=== PATIENT | male | born 1980 | race Caucasian/White ===

== ENCOUNTER 2020-06-22 19:13 | Emergency (ER) | payer OTHER ==
[2020-06-22 19:29] VITALS: BP 143/94; PULSE 94; RESP 18; TEMP 98
[2020-06-22 20:52] LABS: Amphetamine Screen,Urine Not Detected (NotDetected); Barbiturate Screen,Urine Not Detected (NotDetected); Benzodiazepines Screen,Urine Not Detected (NotDetected); Cocaine Screen,Urine Not Detected (NotDetected); Methadone Screen, Urine Not Detected (NotDetected); Opiate Screen,Urine Not Detected (NotDetected); Oxycodone Screen, Urine Not Detected (NotDetected); Phencyclidine Screen,Urine Not Detected (NotDetected); Tricyclic Antidepressant,Urine Not Detected (NotDetected); Urn Cannabinoid Scrn Detected (NotDetected)
--- NOTE | 2020-06-22 21:24 | ED ---
Psych HPI - General Chief Complaint: Psychiatric Symptoms Stated Complaint: Mental Health Time Seen by Provider: 06/22/20 20:07 Source: patient, police, RN notes reviewed Mode of arrival: ambulatory - History of Present Illness Initial Comments: This is a 39-year-old male brought in by [facility] for evaluation for depression and suicidal ideation. The [place] apparently was [place] did threaten to shoot himself. He denies this to myself at this time. Apparently a friend has recently committed suicide also his girlfriend is currently in long term. No other complaints or modifying factors this time patient is under petition. MD Complaint: suicidal ideation, feels depressed - Related Data Home Medications Medication Instructions Recorded Confirmed No Known Home Medications 05/14/14 05/14/14 Allergies Allergy/AdvReac Type Severity Reaction Status Date / Time No Known Allergies Allergy Verified 06/22/20 19:29 Review of Systems ROS Statement: Those systems with pertinent positive or pertinent negative responses have been documented in the HPI. ROS Other: All systems not noted in ROS Statement are negative. Past Medical History Past Medical History: No Reported History History of Any Multi-Drug Resistant Organisms: None Reported Past Surgical History: No Surgical Hx Reported Past Psychological History: No Psychological Hx Reported Smoking Status: Current every day smoker Past Alcohol Use History: Occasional Past Drug Use History: None Reported General Exam - General Exam Comments Initial Comments: this a well-developed well-nourished awake alert oriented 3 male Limitations: no limitations General appearance: alert, in no apparent distress Head exam: Present: atraumatic, normocephalic, normal inspection Eye exam: Present: normal appearance, PERRL, EOMI. Absent: scleral icterus, co njunctival injection, periorbital swelling ENT exam: Present: normal exam, mucous membranes moist Neck exam: Present: normal inspection. Absent: tenderness, meningismus, lymphadenopathy Respiratory exam: Present: normal lung sounds bilaterally. Absent: respiratory distress, wheezes, rales, rhonchi, stridor Cardiovascular Exam: Present: regular rate, normal rhythm, normal heart sounds. Absent: systolic murmur, diastolic murmur, rubs, gallop, clicks GI/Abdominal exam: Present: soft, normal bowel sounds. Absent: distended, tenderness, guarding, rebound, rigid Extremities exam: Present: normal inspection, full ROM, normal capillary refill. Absent: tenderness, pedal edema, joint swelling, calf tenderness Back exam: Present: normal inspection Neurological exam: Present: alert, oriented X3, CN II-XII intact Psychiatric exam: Present: flat affect Skin exam: Present: warm, dry, intact, normal color. Absent: rash Course Vital Signs 06/22/20 19:24 Temperature 98.0 F Pulse Rate 94 Respiratory 18 Rate Blood Pressure 143/94 O2 Sat by Pulse 99 Oximetry Medical Decision Making - Medical Decision Making The patient was evaluated by psychiatric service he is not a risk to himself or anyone else at this time. Neck is a she is made against him were from his girlfriend was intoxicated time he currently is in long term.he will be discharged - Lab Data Lab Results 06/22/20 Range/Units 20:32 Urine Opiates Screen Not Detected (NotDetected) Ur Oxycodone Screen Not Detected (NotDetected) Urine Methadone Screen Not Detected (NotDetected) Ur Propoxyphene Screen Not Detected (NotDetected) Ur Barbiturates Screen Not Detected (NotDetected) U Tricyclic Antidepress Not Detected (NotDetected) Ur Phencyclidine Scrn Not Detected (NotDetected) Ur Amphetamines Screen Not Detected (NotDetected) U Methamphetamines Scrn Not Detected (NotDetected) U Benzodiazepines Scrn Not Detected (NotDetected) Urine Cocaine Screen Not Detected (NotDetected) U Marijuana (THC) Screen Detected H (NotDetected) Disposition Clinical Impression: Adjustment disorder Disposition: HOME SELF-CARE Condition: Good Instructions (If sedation given, give patient instructions): Stress (ED), Mood Disorders (ED) Is patient prescribed a controlled substance at d/c from ED?: No Referrals: Reece Vences MD [Primary Care Provider] - 1-2 days
== END 2020-06-22 22:16 | disposition home or self-care (01) ==
LOC: EC 19:13
DX: F43.20 Adjustment disorder, unspecified (principal); F17.200 Nicotine dependence, unspecified, uncomplicated
CPT/HCPCS: 80306; 82075; 99285